=== PATIENT | female | born 1970 | race American Indian/Alaskan Native ===

== ENCOUNTER 2020-04-08 19:12 | Emergency (ER) | payer OTHER ==
[2020-04-08 19:19] VITALS: BP 129/80
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
== END 2020-04-08 21:18 | disposition home or self-care (01) ==
LOC: ED 19:12
DX: M54.2 Cervicalgia (principal); M54.5 Low back pain; I10 Essential (primary) hypertension; Z91.013 Allergy to seafood; Z91.018 Allergy to other foods; Z79.899 Other long term (current) drug therapy; V49.49XA Driver injured in collision with other motor vehicles in traffic accident, initial encounter; Y92.410 Unspecified street and highway as the place of occurrence of the external cause; Y93.89 Activity, other specified; Y99.8 Other external cause status
CPT/HCPCS: 99282

== ENCOUNTER 2020-07-14 14:16 | Emergency (ER) | payer OTHER ==
--- NOTE | 2020-07-14 14:36 | Event Note ---
ED Screening Note ED Screening Note: substernal CP that began 4 days ago worse with coughing +cough +SOB with coughing no n/v/d no fever no body aches +headache COVID-19 + on 07/11/2019 states that her contracted COVID 19 first PMHx HTN, PCOS no allergies to meds non smoker This initial assessment/diagnostic orders/clinical plan/treatment(s) is/are subject to change based on patients health status, clinical progression and re- assessment by fellow clinical providers in the ED. Further treatment and workup at subsequent clinical providers discretion. Patient/guardian urged not to elope from the ED as their condition may be serious if not clinically assessed and managed. Initial orders include: labs, CXR, EKG
--- NOTE | 2020-07-14 15:45 | XRay Report ---
CHEST 2 VIEWS INDICATION / CLINICAL INFORMATION: Cough, chest pain, shortness of breath. COMPARISON: Chest 2 views from 06/03/2013. FINDINGS: SUPPORT DEVICES: None. HEART / MEDIASTINUM: No significant abnormality. LUNGS / PLEURA: There are bibasilar airspace opacities. No significant pleural effusion. No pneumotho rax. ADDITIONAL FINDINGS: No significant additional findings. IMPRESSION: Suspected bibasilar pneumonia. Continued radiographic follow-up to resolution is recommended. Signer Name: Jony Mehta MD Signed: 07/14/2020 3:41 PM Workstation Name: [id number]
[2020-07-14] MEDS ORDERED: AZITHROMYCIN 500 MG in SODIUM CHLORIDE 0.9% 250ML 250 ML IV ONE (16:47)
[2020-07-14] MEDS ORDERED: SODIUM CHLORIDE 0.9% 1000 ML 1,000 ML IV ONE (16:47)
[2020-07-14] MEDS ORDERED: cefTRIAXone/NS 1 GM/50 ML 1 GM/50 ML BAG IV ONE (16:47)
[2020-07-14] MEDS ORDERED: dexAMETHasone 4 MG/ML VIAL IV ONE (16:47)
--- NOTE | 2020-07-14 16:52 | Emergency Department Report ---
ED General Adult HPI - General Chief complaint: Chest Pain Stated complaint: CHEST PAIN Time Seen by Provider: 07/14/20 14:33 Source: patient Mode of arrival: Ambulatory Limitations: No Limitations - History of Present Illness Initial comments: Patient is 50 years old female with history of hypertension. Patient presented to the ER complaining of shortness of breath, cough and chest pain for the last 5 days. Patient stated that she tested positive for COVID-19 5 days ago. Patient described her chest pain as sharp and increase when she started cou ghing. Patient denied fever however stated that she has been having some chills. Patient denied any nausea or vomiting. Solution precaution immediately implemented. -: days(s) (7) - Related Data Previous Rx's Medication Instructions Recorded Last Taken Type Naproxen [Naprosyn TAB] 500 mg PO BID #20 tablet 06/03/13 Unknown Rx Pantoprazole [Protonix] 40 mg PO QDAY #10 tablet 06/03/13 Unknown Rx Ibuprofen [Motrin 600 MG tab] 600 mg PO Q8H PRN #21 tablet 04/08/20 Unknown Rx Allergies Allergy/AdvReac Type Severity Reaction Status Date / Time chocolate flavor Allergy Rash Verified 06/03/13 16:23 shellfish derived Allergy Swelling Verified 06/03/13 16:23 ED Review of Systems ROS: Stated complaint: CHEST PAIN Other details as noted in HPI Comment: All other systems reviewed and negative Constitutional: chills. denies: fever Respiratory: cough. denies: shortness of breath, SOB with exertion, SOB at rest, wheezing Cardiovascular: chest pain. denies: palpitations, dyspnea on exertion Gastrointestinal: denies: abdominal pain, nausea, vomiting Neurological: denies: headache, weakness, numbness, paresthesias, confusion, abnormal gait ED Past Medical Hx - Past Medical History Hx Hypertension: Yes - Surgical History Past Surgical History?: No - Social History Smoking Status: Never Smoker Substance Use Type: None - Medications Home Medications: Home Medications Medication Instructions Recorded Confirmed Last Taken Type Naproxen [Naprosyn TAB] 500 mg PO BID #20 tablet 06/03/13 Unknown Rx Pantoprazole [Protonix] 40 mg PO QDAY #10 tablet 06/03/13 Unknown Rx Ibuprofen [Motrin 600 MG tab] 600 mg PO Q8H PRN #21 tablet 04/08/20 Unknown Rx ED Physical Exam - General Limitations: No Limitations General appearance: alert, in no apparent distress - Head Head exam: Present: atraumatic, normocephalic, normal inspection - Eye Eye exam: Present: normal appearance, PERRL - ENT ENT exam: Present: normal exam, mucous membranes dry - Neck Neck exam: Present: normal inspection, full ROM. Absent: tenderness, meningismus - Respiratory Respiratory exam: Present: rales. Absent: respiratory distress, wheezes, accessory muscle use, decreased breath sounds, prolonged expiratory - Cardiovascular Cardiovascular Exam: Present: tachycardia - GI/Abdominal GI/Abdominal exam: Present: soft, normal bowel sounds. Absent: distended, tenderness, guarding, rebound, rigid, organomegaly, mass, bruit, pulsatile mass, hernia - Extremities Exam Extremities exam: Present: normal inspection, full ROM, normal capillary refill. Absent: tenderness, pedal edema, joint swelling, calf tenderness - Back Exam Back exam: Present: normal inspection, full ROM. Absent: CVA tenderness (R), CVA tenderness (L), muscle spasm, paraspinal tenderness, vertebral tenderness - Neurological Exam Neurological exam: Present: alert, oriented X3, CN II-XII intact, normal gait, reflexes normal. Absent: motor sensory deficit - Psychiatric Psychiatric exam: Present: normal mood - Skin Skin exam: Present: warm, intact, normal color ED Course Vital Signs 07/14/20 14:22 Temperature 98.1 F Pulse Rate 109 H Respiratory 17 Rate Blood Pressure 98/50 O2 Sat by Pulse 94 Oximetry ED Medical Decision Making - Lab Data Result diagrams: 07/14/20 16:40 07/14/20 16:40 - Radiology Data Radiology results: report reviewed - Medical Decision Making Patient is 50 years old female with history of hypertension. Patient presented to the ER complaining of shortness of breath, cough and chest pain for the last 5 days. Patient stated that she tested positive for COVID-19 5 days ago. Patient described her chest pain as sharp and increase when she started coughing. Patient denied fever however stated that she has been having some chills. Patient denied any nausea or vomiting. Solution precaution immediately implemented. Chest x-ray showed bilateral lower lobe pneumonia. Patient received Rocephin, Zofran, Decadron and normal saline. Patient stated that she is feeling much better and she does not want to be admitted to the hospital. I discussed with the patient possibility of deterioration but patient stated that she does not want to be admitted. Patient oxygen saturation remained above 95% on room air. Patient given prescription for Zithromax, Decadron and advised to self quarantine and to return to the ER if she is not feeling better or if her symptoms getting worse. Critical care attestation.: If time is entered above; I have spent that time in minutes in the direct care of this critically ill patient, excluding procedure time. ED Disposition Clinical Impression: Bilateral pneumonia, COVID-19 Disposition: DC- TO HOME OR SELFCARE Is pt being admited?: No Condition: Stable Instructions: Bacterial Pneumonia (ED), COVID-19 Frequently Asked Questions, COVID-19, Community-Acquired Pneumonia, Adult Referrals: PRIMARY CARE, [Primary Care Provider] - 3-5 Days
[2020-07-14 17:02] LABS: Basophils % (Auto) 0.3 % (0.0-1.8); Hematocrit 38.3 % (30.3-42.9); Hemoglobin 12.6 gm/dl (10.1-14.3); Lymphocytes # (Auto) 1.6 K/mm3 (1.2-5.4); Lymphocytes % (Auto) 18.4 % (13.4-35.0); Mean Corpuscular HGB Conc 33 % (30-34); Mean Corpuscular Volume 89 fl (79-97); Monocytes # (Auto) 1.1 K/mm3 (0.0-0.8); Monocytes % (Auto) 12.5 % (0.0-7.3); Platelet Count 160 K/mm3 (140-440); Red Blood Count 4.32 M/mm3 (3.65-5.03); Red Cell Distribution Width 15.9 % (13.2-15.2)
[2020-07-14 17:20] LABS: Alanine Aminotransferase 24 units/L (7-56); Albumin 3.9 g/dL (3.9-5); BUN/Creatinine Ratio 16; Blood Urea Nitrogen 42 mg/dL (7-17); Calcium 8.5 mg/dL (8.4-10.2); Hemolysis Index 20
[2020-07-15 05:46] VITALS: BP 104/52
== END 2020-07-14 22:00 | disposition home or self-care (01) ==
LOC: ED 14:16
DX: U07.1 COVID-19 (principal); J15.9 Unspecified bacterial pneumonia; I10 Essential (primary) hypertension; Z79.1 Long term (current) use of non-steroidal anti-inflammatories (NSAID); Z79.899 Other long term (current) drug therapy; Z91.013 Allergy to seafood; Z88.8 Allergy status to other drugs, medicaments and biological substances
CPT/HCPCS: 36415; 71046; 80053; 84484; 84703; 85025; 93005; 96365; 96367; 96375; 99284; J0456; J0696; J1100; J7030; J7050